=== PATIENT | male | born 1945 | race Caucasian/White ===

== ENCOUNTER 2023-05-15 05:37 | Day surgery (SDC) | payer OTHER ==
[2023-05-13 14:45] VITALS: BMI 25.7
[2023-05-15] MEDS ORDERED: Thrombin 5000 UNITS/5 ML VIAL ONE (06:18)
[2023-05-15] MEDS ORDERED: CEFAZOLIN 2 GM VIAL ONE ×2 (06:33→11:45)
[2023-05-15] MEDS ORDERED: Sodium Chloride 0.9% 100 ML ONE ×2 (06:33→11:45)
[2023-05-15] MEDS ORDERED: fentaNYL 50 mcg/mL 1 mL Vial ONE ×4 (06:34→09:37)
[2023-05-15] MEDS ORDERED: Ketorolac Tromethamine 30 MG/ML VIAL ONE (06:35)
[2023-05-15] MEDS ORDERED: Ondansetron PF 4 MG/2 ML Vial ONE (06:35)
[2023-05-15] MEDS ORDERED: Dexamethasone 20 MG/5 ML VIAL ONE (06:35)
[2023-05-15] MEDS ORDERED: Rocuronium Bromide 10 MG/ML (10ML VIAL) ONE (06:35)
[2023-05-15] MEDS ORDERED: PROPOFOL 200 MG/20 ML VIAL ONE (06:35)
[2023-05-15] MEDS ORDERED: Lidocaine 1% PF 5 ML VIAL ONE (06:35)
[2023-05-15] MEDS ORDERED: PHENYLEPHRINE-NS 100 MCG/ML 10 ML SYRINGE ONE (06:35)
[2023-05-15 06:43] LABS: Hematocrit 38.4 % (42.0-52.0); Hemoglobin 12.3 g/dL (14.0-18.0); Mean Corpuscular Hemoglobin 29.2 pg (27.0-31.0); Mean Corpuscular Volume 91.2 fl (78.0-98.0); Mean Platelet Volume 9.9 fL (7.4-10.4); Platelet Count 173 10x3/uL (130-400); Red Blood Cell (RBC) Count 4.21 mill/uL (4.70-6.10)
[2023-05-15] MEDS ORDERED: Lidocaine 2% 6 ML (Jelly) SYR ONE (06:53)
[2023-05-15 07:08] LABS: Anion Gap 10 mmol/L (10-20); BUN (Urea Nitrogen) 13 mg/dL (8.4-25.7); Calc. Creatinine Clearance 98 mL/min (70-130); Calcium 9.5 mg/dL (7.8-10.44); Carbon Dioxide 29 mmol/L (23-31); Chloride 105 mmol/L (98-107); Estimated GFR 92; Glucose 95 mg/dL (83-110); Potassium 3.6 mmol/L (3.5-5.1); Sodium 140 mmol/L (136-145)
[2023-05-15] MEDS ORDERED: SUGAMMADEX SODIUM 200 MG/2 ML VIAL ONE (07:59)
[2023-05-15] MEDS ORDERED: Tamsulosin HCl 0.4 MG CAP ONE (08:41)
[2023-05-15] MEDS ORDERED: HYDROcodone/Acetaminophen 5/325 mg Tablet ONE (12:29)
== END 2023-05-15 12:45 | disposition home or self-care (01) ==
LOC: SDC 05:37
PROVIDERS: ATTEND Neurological Surgery
PROC: 0SG00K1 Fusion of Lumbar Vertebral Joint with Nonautologous Tissue Substitute, Posterior Approach, Posterior Column, Open Approach (ICD-10-PCS; principal; 2023-05-15)
PROC: 0RG10K1 Fusion of Cervical Vertebral Joint with Nonautologous Tissue Substitute, Posterior Approach, Posterior Column, Open Approach (ICD-10-PCS; principal; 2023-05-15)
DX: M47.12 Other spondylosis with myelopathy, cervical region (principal); M43.10 Spondylolisthesis, site unspecified; E78.5 Hyperlipidemia, unspecified; I11.9 Hypertensive heart disease without heart failure; Z79.82 Long term (current) use of aspirin; Z79.899 Other long term (current) drug therapy; Z95.5 Presence of coronary angioplasty implant and graft; Z96.653 Presence of artificial knee joint, bilateral
CPT/HCPCS: 80048; 85027; C1713; C1889; J1100; J1885; J2405; J2704; J3010; J3490